=== PATIENT | female | born 1980 | race Caucasian/White ===

== ENCOUNTER 2017-10-01 17:49 | Inpatient (IN) | payer BC ==
[2017-10-01] MEDS ORDERED: PROCHLORPERAZINE 10 MG/2 ML VIAL. IM (19:00)
[2017-10-01] MEDS ORDERED: ONDANSETRON PF 4 MG/2 ML VIAL. IV (19:00)
[2017-10-01] MEDS ORDERED: POTASSIUM CL 20MEQ-0.45% NACL 1,000 ML IV (19:00)
[2017-10-01] MEDS ORDERED: 0.9 % SODIUM CHLORIDE 10 ML DISP.SYRIN. IV (19:15)
[2017-10-01] MEDS: METOCLOPRAMIDE HCL 10 MG/2 ML VIAL. IV ×2 (19:30→20:08)
[2017-10-01] MEDS: POTASSIUM CL 20MEQ-0.45% NACL 1,000 ML IV (20:08)
[2017-10-01] MEDS: MORPHINE SULFATE 2 MG/ML DISP.SYRIN. IV (20:09)
[2017-10-02 06:13] LABS: ADD MAN DIFF? NO
[2017-10-02 06:19] LABS: BASO % 0 % (0-3); EOS # 0.3 x10^3/uL (0.0-0.7); EOS % 4 % (0-3); HEMATOCRIT 38.8 % (36.0-47.0); HEMOGLOBIN 12.9 g/dL (12.0-15.5); LYMPH # 1.5 x10^3/uL (1.0-4.8); LYMPH % 18 % (24-48); MEAN CORPUSCULAR HEMOGLOBIN 28 pg (25-35); MEAN CORPUSCULAR HGB CONC 33 g/dL (31-37); MEAN CORPUSCULAR VOLUME 84 fL (79-100); MONO # 0.7 x10^3/uL (0.0-1.1); MONO % 9 % (0-9); NEUT # 5.8 x10^3uL (1.8-7.7); NEUT % 70 % (31-73); PLATELET COUNT 234 x10^3/uL (140-400); RED BLOOD COUNT 4.65 x10^6/uL (3.50-5.40); RED CELL DISTRIBUTION WIDTH 13.8 % (11.5-14.5); WHITE BLOOD COUNT 8.4 x10^3/uL (4.0-11.0)
[2017-10-02] MEDS: POTASSIUM CL 20MEQ-0.45% NACL 1,000 ML IV ×3 (06:19→21:12)
[2017-10-02] MEDS: METOCLOPRAMIDE HCL 10 MG/2 ML VIAL. IV ×3 (06:20→21:12)
[2017-10-02] MEDS ORDERED: PROCHLORPERAZINE 10 MG/2 ML VIAL. IV (08:30)
[2017-10-02] MEDS: fentaNYL PF VIAL 100 MCG/2 ML VIAL IV ×2 (08:41→17:22)
[2017-10-02] MEDS ORDERED: ONDANSETRON PF 4 MG/2 ML VIAL. IV (10:00)
[2017-10-02] MEDS: FAMOTIDINE 20 MG/2 ML VIAL IVP ×2 (13:43→21:12)
[2017-10-02 19:44] LABS: ALBUMIN 3.6 g/dL (3.4-5.0); ALK PHOS 59 U/L (46-116); ALT (SGPT) 18 U/L (14-59); ANION GAP 13 (6-14); AST (SGOT) 18 U/L (15-37); BLOOD UREA NITROGEN 7 mg/dL (7-20); BUN/CREATININE RATIO 14 (6-20); CALCIUM 8.4 mg/dL (8.5-10.1); CARBON DIOXIDE 24 mmol/L (21-32); CHLORIDE 103 mmol/L (98-107); CREATININE 0.5 mg/dL (0.6-1.0); GFR 138.8; GLUCOSE 86 mg/dL (70-99); POTASSIUM 3.7 mmol/L (3.5-5.1); SODIUM 140 mmol/L (136-145); TOTAL BILIRUBIN 0.4 mg/dL (0.2-1.0); TOTAL PROTEIN 7.1 g/dL (6.4-8.2)
[2017-10-03] MEDS: fentaNYL PF VIAL 100 MCG/2 ML VIAL IV ×3 (00:25→22:31)
[2017-10-03] MEDS: METOCLOPRAMIDE HCL 10 MG/2 ML VIAL. IV ×4 (03:37→22:30)
[2017-10-03] MEDS: PHENOL ORAL SPRAY 177ML BOTTLE. PO (03:39)
[2017-10-03] MEDS: POTASSIUM CL 20MEQ-0.45% NACL 1,000 ML IV ×2 (03:39→22:30)
[2017-10-03] MEDS ORDERED: BENZOCAINE/MENTHOL LOZENGE. PO (04:15)
[2017-10-03] MEDS: FAMOTIDINE 20 MG/2 ML VIAL IVP ×2 (09:00→22:29)
[2017-10-03] MEDS ORDERED: CONTRAST GIVEN MC (09:30)
[2017-10-03] MEDS: IOHEXOL 300 MG/ML 100ML VIAL. PO (09:30)
[2017-10-04] MEDS: POTASSIUM CL 20MEQ-0.45% NACL 1,000 ML IV ×2 (08:31→18:27)
[2017-10-04] MEDS: METOCLOPRAMIDE HCL 10 MG/2 ML VIAL. IV ×3 (08:31→21:14)
[2017-10-04] MEDS: FAMOTIDINE 20 MG/2 ML VIAL IVP ×2 (10:04→21:00)
[2017-10-04 19:39] LABS: ADD MAN DIFF? NO
[2017-10-04 19:47] LABS: BASO % 1 % (0-3); EOS # 0.3 x10^3/uL (0.0-0.7); EOS % 5 % (0-3); HEMATOCRIT 36.3 % (36.0-47.0); HEMOGLOBIN 12.1 g/dL (12.0-15.5); LYMPH # 1.2 x10^3/uL (1.0-4.8); LYMPH % 20 % (24-48); MEAN CORPUSCULAR HEMOGLOBIN 28 pg (25-35); MEAN CORPUSCULAR HGB CONC 33 g/dL (31-37); MEAN CORPUSCULAR VOLUME 83 fL (79-100); MONO # 0.8 x10^3/uL (0.0-1.1); MONO % 13 % (0-9); NEUT # 3.7 x10^3uL (1.8-7.7); NEUT % 60 % (31-73); PLATELET COUNT 252 x10^3/uL (140-400); RED BLOOD COUNT 4.38 x10^6/uL (3.50-5.40); RED CELL DISTRIBUTION WIDTH 13.5 % (11.5-14.5)
[2017-10-04 20:04] LABS: ANION GAP 11 (6-14); BLOOD UREA NITROGEN 7 mg/dL (7-20); CALCIUM 8.5 mg/dL (8.5-10.1); CARBON DIOXIDE 25 mmol/L (21-32); CHLORIDE 103 mmol/L (98-107); CREATININE 0.6 mg/dL (0.6-1.0); GFR 112.5; GLUCOSE 109 mg/dL (70-99); POTASSIUM 3.6 mmol/L (3.5-5.1); SODIUM 139 mmol/L (136-145)
[2017-10-05] MEDS: POTASSIUM CL 20MEQ-0.45% NACL 1,000 ML IV ×2 (05:39→13:10)
[2017-10-05] MEDS: METOCLOPRAMIDE HCL 10 MG/2 ML VIAL. IV ×2 (05:39→13:54)
[2017-10-05] MEDS: FAMOTIDINE 20 MG/2 ML VIAL IVP (08:40)
== END 2017-10-05 14:05 | disposition home or self-care (01) | DRG 390 ==
LOC: 4 NORTH 17:49
DX: K56.609 Unspecified intestinal obstruction, unspecified as to partial versus complete obstruction (principal); Z82.49 Family history of ischemic heart disease and other diseases of the circulatory system; Z85.068 Personal history of other malignant neoplasm of small intestine; Z90.49 Acquired absence of other specified parts of digestive tract; Z88.2 Allergy status to sulfonamides
CPT/HCPCS: 36415; 74022; 74250; 80048; 80053; 85025; J2270; J2765; J3010; Q9967; S0028

== ENCOUNTER → 2021-10-16 | Outpatient (CLI) | payer BC ==
[2017-10-05 11:00] VITALS: BP 134/89
[~2021-10-16] MED LIST: BUPR1PAT8 TP; DESV50TA PO; FEXO1TAB31 PO
--- NOTE | 2021-10-16 08:38 | RAD ---
EXAM: ULTRASOUND ABDOMEN LIMITED CLINICAL HISTORY: Reason: NAUSEA, ABDOMINAL PAIN COMPARISON: None available. TECHNIQUE: Limited ultrasound examination of the right upper quadrant of the abdomen was performed. FINDINGS: No pancreatic mass is seen. The IVC is unremarkable. The liver measures 12.6 cm in length which is no rmal. No hepatic mass is seen. The gallbladder is normal and no gallstone is seen. The extra hepatic bile duct measures 4 mm in caliber which is normal. The length of the right kidney is 10.2 cm. No hydronephrosis or renal mass or perinephric fluid colle ction is seen on the right side. IMPRESSION: Unremarkable study. Electronically signed by: Ridge Portillo MD (10/16/2021 8:35 AM) [id number]
--- NOTE | 2021-10-16 11:25 | RAD ---
EXAM: Nuclear hepatobiliary scan. HISTORY: Nausea and pain. TECHNIQUE: Following intravenous administration of 5.2 mCi Tc 99m Choletec, anterior images of the ab domen were obtained at five minute intervals through one hour. Subsequently, 8 ounces of Ensure drink was ingested and additional images to assess gallbladder ejection fraction were obtained. FINDINGS: There is prompt radiotracer uptake by the liver. No focal defect is seen. There is normal e xcretion into the biliary tree. The gallbladder is visualized within 10 minutes and there is free jess w into the duodenum. The gallbladder ejection fraction is 90 percent. IMPRESSION: High gallbladder ejection fraction of 90 percent. This can be physiologic or associated w ith biliary hyperkinesia. Electronically signed by: Capri Bosch MD (10/16/2021 11:23 AM) [id number]
== END ==
LOC: US 06:51
PROVIDERS: ATTEND Internal Medicine Gastroenterology
DX: R11.0 Nausea (principal); R10.9 Unspecified abdominal pain
CPT/HCPCS: 76705; 78227; A9537

== ENCOUNTER 2022-02-24 09:59 | Day surgery (SDC) | payer BC ==
[~2022-02-24] VITALS: Ht 165.1 cm; Wt 57.5 kg
[~2022-02-24 09:59] MED LIST changes: +BUPIVACAINE-EPI 0.5% 30 ML VIAL KIT. ONE; +GLYCOPYRROLATE 1 MG/5 ML VIAL. ONE; +IOHEXOL 300 MG/ML 50 ML VIAL. ONE; +IV RINGERS,LACTATED 1000ML 1,000 ML IV SCH; +LACT1CAP37 PO; +LIDOCAINE 1% PF 5 ML VIAL. ONE; +MIDAZOLAM HCL/PF 2 MG/2 ML VIAL. ONE; +MULT-496 PO; +NEOSTIGMINE METHYLSULFATE 5 MG/5 ML SYRINGE. ONE; +PROCHLORPERAZINE 10 MG/2 ML VIAL. IVP PRN; +PROPOFOL 10 MG/ML (20ML) VIAL. IV ONE; +ROCURONIUM 50 MG/5 ML VIAL. ONE; +SEVOFLURANE 31 TO 60 MINUTES. IH ONE; +ceFAZolin SODIUM IV Push 1 GM VIAL. IVP PRN; +fentaNYL PF VIAL 100 MCG/2 ML VIAL IVP PRN; +fentaNYL PF VIAL 100 MCG/2 ML VIAL ONE
[2022-02-24 10:21] VITALS: BP 157/85
[2022-02-24] MEDS ORDERED: KETOROLAC 30 MG/ML VIAL. ONE (11:44)
[2022-02-24] MEDS ORDERED: DEXAMETHASONE SOD PHOS 4 MG/ML VIAL ONE (11:45)
[2022-02-24] MEDS ORDERED: ONDANSETRON PF 4 MG/2 ML VIAL. ONE (11:45)
--- NOTE | 2022-02-24 11:58 | RAD ---
DG INTRAOPERATIVE CHOLANGIOGRAM History: Reason: CHOLANGIOGRAMS IN OR WITH C-ARM, pain Comparison: None. Technique/findings: Fluoroscopy provided during intraoperative cholangiogram after cholecystectomy. Biliary ducts are opa cified. Contrast opacifies the small bowel. See procedure note for further details. Fluoroscopy time: 10 seconds Number of fluoroscopic images: 2 Impression: 1. Fluoroscopy provided during intraoperative cholangiogram. No common bile duct obstruction. Electronically signed by: Juan Barrientos DO (02/24/2022 11:55 AM) [id number]
--- NOTE | 2022-02-24 12:13 | PDOC4 ---
Operative Note Operative Note Operative Note: Preoperative Diagnosis: Biliary dyskinesia Postoperative Diagnosis: Same Procedure: Laparoscopic cholecystectomy with intraoperative cholangiogram Surgeons: Dashawn Anesthesia: Gen. Estimated Blood Loss: 10 mL Specimen: Gallbladder to pathology Drains: None Complications: None Indications: The patient is a 41-year-old female who is referred with suspected biliary dyskinesia. Surgical treatment was offered by means of a laparoscopic cholecystectomy. The risks of surgery were discussed which include bleeding, infection, bile duct injury, bile leak, pain, the potential for additional surgeries or procedures. The patient understands and would like to proceed. Description: The patient was taken to the operating room and laid supine on the operating table. General anesthesia was performed. The abdomen was prepped with ChloraPrep and draped in a standard surgical fashion. A small incision was made in the right upper quadrant through which a visualized 5 mm trocar was inserted. Pneumoperitoneum was created and the laparoscope was introduced. Despite her prior surgeries there was no significant adhesions to the abdominal wall. 5 mm trochars placed in the lower mid abdomen. In the upper midabdomen a 5 mm trocar was inserted and in the right upper quadrant one 2.3 mm mini lap grasper was inserted. The gallbladder was retracted cephalad. The cystic duct was dissected free from surrounding tissues. One clip was placed on the duct near the gallbladder junction. An opening was made in the duct and a cholangiocatheter placed within and secured with a clip. Using contrast dye and fluoroscopy an intraoperative cholangiogram was performed that appeared unremarkable. The clip and catheter were then withdrawn. Three clips were placed on the cystic duct and it was divided. The cystic artery was then identified, dissected free, doubly clipped and divided as well. The gallbladder was then mobilized away from the liver with cautery. The lower abdominal 5 millimeter trocar was exchanged for an 11 millimeter trocar. The gallbladder was then placed in an endoscopic bag and extracted at the inferior trocar site. The fascia there was closed with an 0 Vicryl suture and infiltrated with 0.5% marcaine. All blood and irrigation fluid was suctioned and hemostasis was good. The remaining ports were removed and the pneumoperitoneum was relieved. The skin incisions were closed using 4-0 Monocryl suture. Steri-Strips and dressin gs were then applied. The patient tolerated the procedure well and was sent to the recovery room in stable condition. At the end of the case all counts were correct. JUAN GREEN MD February 24, 2022 12:13
[2022-02-24] MEDS ORDERED: OXYC-325 PO (12:17)
--- NOTE | 2022-02-24 12:19 | DISCH ---
DISCHARGE INSTRUCTIONS Condition on Discharge Condition on Discharge: Stable Activity After Discharge Activity Instructions for Disc: Other, see below (No lifting over 20 lbs X 2 weeks, no driving while taking pain meds) Weight Bearing Status after Di: As tolerated Diet after Discharge Diet after Discharge: Regular Wound Incision Care Wound/Incision Care: Other, see below (may remove bandaids and shower tomorrow, steristrips fall off on their own) Follow-Up Follow up with: Dr Green in 2 weeks in office, call for appointment, JUAN GREEN MD February 24, 2022 12:19
[2022-02-24] MEDS ORDERED: oxyCODONE/APAP 5/325 1 TAB TABLET PO ONE (12:30)
[2022-02-24] MEDS ORDERED: fentaNYL PF VIAL 100 MCG/2 ML VIAL ONE (12:52)
[2022-02-24 14:31] VITALS: BP 164/78
== END 2022-02-24 14:45 | disposition home or self-care (01) ==
LOC: SURG 09:59
PROVIDERS: ATTEND Surgery
DX: K82.8 Other specified diseases of gallbladder (principal); Z79.899 Other long term (current) drug therapy; Z98.890 Other specified postprocedural states; Z72.0 Tobacco use
CPT/HCPCS: 47563; 74300; 81025; A4213; A4314; A4930; C1887; J0690; J1100; J1885; J2250; J2405; J2704; J2710; J3010; J3490; Q9967; A4657